=== PATIENT | male | born 1950 | race Two or more races ===

== ENCOUNTER 2019-12-23 23:04 | Inpatient (IN) | payer MEDICARE, OTHER ==
[~2019-12-23] VITALS: Ht 165.1 cm; Wt 94.8 kg
--- NOTE | 2019-12-23 23:12 | NUR ---
PT BIB RA WITH A C/O BILATERAL INGUINAL/GROIN PAIN, BLADDER PAIN, TESTICULAR PAIN, AND PAIN WITH URINATION. PT LOST HIS PLACE AT THE BOARD AND CARE AND PER THE PT, THE ENTHONE SOLDER STRIPPER WAS NOT ABLE TO GET HIM PLACED AT THE BOARD IN CARE. PT STATED THAT THE PAIN IS CHRONIC, BUT IS WORSE TODAY. PT HAS A WHEEL CHAIR AND AMBULATED TO THE GURNEY FROM THE RESCUE GURNEY WITH ASSISTANCE. PT WAS PLACED IN A GOWN AND IS ON THE MONITOR AND CONTINUOUS PULSE OX.
[2019-12-23 23:38] LABS: BASOPHILS # (AUTO) 0.1 /CMM (0.0-0.2); BASOPHILS % (AUTO) 0.9 % (0.0-2.0); EOSINOPHILS % (AUTO) 0.2 % (0.0-6.0); HEMATOCRIT 44 % (39-51); HEMOGLOBIN 14.7 g/dL (13.5-17.5); LYMPHOCYTES % (AUTO) 10.7 % (20.0-44.0); MEAN CORPUSCULAR HGB CONC 34 g/dl (31.0-36.0); MEAN CORPUSCULAR VOLUME 90 fL (80-96); MONOCYTES # (AUTO) 0.7 /CMM (0.1-1.30); MONOCYTES % (AUTO) 7.5 % (2.0-12.0); NEUTROPHILS # (AUTO) 7.1 /CMM (1.8-8.9); NEUTROPHILS % (AUTO) 80.7 % (43.0-81.0); PLATELET COUNT (AUTO) 225 /CMM (150-450); RED BLOOD CELL COUNT(AUTO) 4.81 MIL/uL (4.5-6.0); WHITE BLOOD COUNT (AUTO) 8.9 K/uL (4.3-11.0)
[2019-12-23 23:42] LABS: APPEARANCE,URINE Clear (CLEAR); BILIRUBIN,URINE MODERATE (NEGATIVE); BLOOD, URINE Moderate Ery/uL (NEGATIVE); COLOR,URINE Yellow (YELLOW); KETONES,URINE 15 (NEGATIVE); LEUKOCYTE ESTERASE ,URINE Negative (NEGATIVE); NITRITE, URINE Negative (NEGATIVE); PROTEIN,URINE 100 mg/dl (NEGATIVE); UGLUCOSE Negative (NEGATIVE)
[2019-12-23 23:52] LABS: ALBUMIN 3.7 g/dL (3.4-5.0); BILIRUBIN,DIRECT 0.2 mg/dL (0.0-0.2); BILIRUBIN,TOTAL 0.9 mg/dL (0.2-1.0); CALCIUM, SERUM 8.4 mg/dL (8.5-10.1); TOTAL PROTEIN, SERUM 7.6 g/dL (6.4-8.2)
[2019-12-23 23:53] LABS: POTASSIUM 2.7 mmol/L (3.5-5.1)
[2019-12-23 23:58] LABS: BACTERIA,URINE Few /HPF (None Seen); SQUAMOUS EPITHELIAL CELL,UR Few /HPF (None Seen)
--- NOTE | 2019-12-24 00:10 | NUR ---
US TECH AT THE BED SIDE
[2019-12-24] MEDS ORDERED: POTASSIUM CHLORIDE 20 MEQ TAB.PRT.SR PO ONE ×2 (00:28→00:30)
[2019-12-24] MEDS ORDERED: POTASSIUM CHLORIDE 20 MEQ POWDER PACKET ONE (00:35)
[2019-12-24] MEDS ORDERED: POTASSIUM CHLORIDE 20 MEQ POWDER PACKET PO ONE (01:00)
--- NOTE | 2019-12-24 02:58 | NUR ---
EMT AT BEDSIDE TO CHANGE PT.
--- NOTE | 2019-12-24 03:32 | NUR ---
Patient is resting comfortably in bed with eyes closed. Easily aroused. VSS.
--- NOTE | 2019-12-24 07:24 | NUR ---
ENDORSEMENT RECEIVED FROM AISHA HUMPHREY FOR [facility]. PATIENT IN BED ASLEEP, EASILY AROUSABLE BY VOICE. HOOKED TO MONITOR, WILL CONTINUE TO MONITOR ACCORDINGLY.
--- NOTE | 2019-12-24 08:55 | NUR ---
spoke to Mandie Dean Of Graduate Studies re: placement.
--- NOTE | 2019-12-24 09:00 | NUR ---
RECEIVED FROM THE ER VIA MACY. LARGE AMOUNT STOOL AND URINE IN HIS DIAPER, BED BATH GIVEN HE IS ALERT AND ORIENTATED. 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 he denies pain at this time.
--- NOTE | 2019-12-24 10:49 | NUR ---
PATIENT IN BED ASLEEP, EASILY AROUSABLE BY VOICE. HOOKED TO MONITOR, WILL CONTINUE TO MONITOR ACCORDINGLY.
--- NOTE | 2019-12-24 12:41 | NUR ---
OFFERED FOOD FOR LUNCH. PATIENT JUST WANTED JUICE.
--- NOTE | 2019-12-24 14:28 | NUR ---
[facility]. PER NURSING STAFF AT [facility] NEED COVID TEST BEFORE ADMISSION.
--- NOTE | 2019-12-24 14:58 | NUR ---
PAGED [facility].
[2019-12-24] MEDS ORDERED: ONDANSETRON HCL/PF 4 MG/2 ML VIAL IVP PRN (16:00)
[2019-12-24] MEDS ORDERED: HYDROCODONE/APAP 5/325MG 1 EACH TABLET PO PRN (16:00)
[2019-12-24] MEDS ORDERED: ZOLPIDEM TARTRATE 5 MG TABLET PO PRN (16:00)
[2019-12-24] MEDS ORDERED: Z GUARD REMEDY 2 OZ OINT TP PRN (16:00)
[2019-12-24] MEDS ORDERED: ACETAMINOPHEN 325 MG TABLET PO PRN (16:00)
[2019-12-24] MEDS ORDERED: MAG HYDROX/AL HYDROX/SIMETH 30 ML UDC PO PRN (16:00)
[2019-12-24] MEDS ORDERED: MAGNESIUM HYDROXIDE 30 ML UDC PO PRN (16:00)
--- NOTE | 2019-12-24 16:21 | NUR ---
PATIENT IN BED ASLEEP, EASILY AROUSABLE BY VOICE. HOOKED TO MONITOR, VSS. KEPT SAFE, WARM AND COMFORTABLE. WILL CONTINUE TO MONITOR ACCORDINGLY
--- NOTE | 2019-12-24 16:23 | NUR ---
CALL FROM JESUS,CASE MANAGEMENT, ACCEPTED A NORMA COBB 1830, REPORT TO [phone]
--- NOTE | 2019-12-24 16:33 | NUR ---
AMBULANCE ETA 183
[2019-12-24] MEDS ORDERED: METO50TA16 PO (16:40)
[2019-12-24] MEDS ORDERED: ASPI-1169 PO (16:40)
[2019-12-24] MEDS ORDERED: MULT-24 PO (16:40)
[2019-12-24] MEDS ORDERED: TAMS-12 PO (16:40)
[2019-12-24] MEDS ORDERED: HYDR-4384 PO (17:19)
--- NOTE | 2019-12-24 17:55 | NUR ---
NURSING SUP GAVE M/S BED 204-1.
--- NOTE | 2019-12-24 17:59 | NUR ---
CORONAVIRUS SWAB SENT TO LAB
--- NOTE | 2019-12-24 18:05 | NUR ---
REPORT GIVEN TO JESS HUMPHREY OF [facility]
[2019-12-24 18:35] LABS: CALCIUM, SERUM 8.3 mg/dL (8.5-10.1); CREATININE 0.9 mg/dL (0.6-1.3)
--- NOTE | 2019-12-24 19:01 | NUR ---
TRANSFERRED TO [facility] VIA RNEY BY TELECOMMUNICATOR
[2019-12-24 20:45] VITALS: BP 121/80
[2019-12-24 20:53] VITALS: BP 121/80
--- NOTE | 2019-12-25 05:43 | NUR ---
ENDING NOTES: ADMITTED FROM THE ER LAST NIGHT AT 1900. ALERT AND ORIENTATED X4 COOPERATIVE MANY LITTLE DEMANDS. COMPLETE BED BATH AND LINEN CHANGE DT HE WAS INCONTINENT LARGE AMOUNT BM AND URINE FROM THE ER. ATE A GOOD SNACK CONSUMED 100% .NO C/O PAIN THIS 12 HOURS. WHEELCHAIR HIS OWN WITH A LARGE BAG OF HIS BELONGING IN THE ROOM
[2019-12-25 06:48] LABS: BASOPHILS # (AUTO) 0.1 /CMM (0.0-0.2); BASOPHILS % (AUTO) 0.9 % (0.0-2.0); EOSINOPHILS % (AUTO) 1.2 % (0.0-6.0); HEMATOCRIT 42 % (39-51); LYMPHOCYTES # (AUTO) 1.3 /CMM (0.8-4.8); LYMPHOCYTES % (AUTO) 19.5 % (20.0-44.0); MEAN CORPUSCULAR HGB CONC 34 g/dl (31.0-36.0); MEAN CORPUSCULAR VOLUME 90 fL (80-96); MONOCYTES # (AUTO) 0.6 /CMM (0.1-1.30); MONOCYTES % (AUTO) 9.4 % (2.0-12.0); NEUTROPHILS # (AUTO) 4.5 /CMM (1.8-8.9); PLATELET COUNT (AUTO) 210 /CMM (150-450); RED BLOOD CELL COUNT(AUTO) 4.63 MIL/uL (4.5-6.0); WHITE BLOOD COUNT (AUTO) 6.5 K/uL (4.3-11.0)
[2019-12-25 07:24] LABS: ALBUMIN 3.1 g/dL (3.4-5.0); BILIRUBIN,TOTAL 0.7 mg/dL (0.2-1.0); CALCIUM, SERUM 7.9 mg/dL (8.5-10.1); MAGNESIUM 1.9 mg/dL (1.8-2.4); PHOSPHORUS 2.3 mg/dL (2.5-4.9); TOTAL PROTEIN, SERUM 6.7 g/dL (6.4-8.2)
[2019-12-25 07:28] LABS: POTASSIUM 2.8 mmol/L (3.5-5.1)
--- NOTE | 2019-12-25 07:31 | NUR ---
MS/RN OPENING NOTES RECEIVED PATIENT ON BED. PATIENT IS ALERT AND ORIENTED X 4. COMPLAINED OF ABDOMINAL PAIN NOTED. NO RESPIRATORY DISTRESS NOTED. IV ACCESS AT RIGHT HAND # 20 G PATENT AND INTACT. BED IN LOW POSITION AND LOCKED X2. CALL LIGHT WITHIN REACH. WILL CONTINUE TO MONITOR.
[2019-12-25 07:50] VITALS: BP 125/73
[2019-12-25] MEDS ORDERED: POTASSIUM CHLORIDE 20 MEQ TAB.PRT.SR PO ONE (08:30)
[2019-12-25] MEDS ORDERED: POTASSIUM CHLORIDE 20 MEQ TAB.PRT.SR PO SCH ×2 (09:30→11:00)
[2019-12-25] MEDS ORDERED: TAMSULOSIN 0.4 MG CAP.SR.24H PO SCH (10:30)
[2019-12-25] MEDS ORDERED: METOPROLOL TARTRATE 50 MG TABLET PO SCH (10:30)
[2019-12-25 11:27] VITALS: BP 125/75
[2019-12-25] MEDS ORDERED: NEUTRA PHOS 1 POWD.PACKET PO ONE (13:00)
--- NOTE | 2019-12-25 16:07 | NUR ---
MS/RN NOTES PATIENT IS ALERT AND ORIENTED X4. PATIENT DENIES PAIN AT THIS TIME. IN ROOM AIR AND SATURATION OF 99%. RESPIRATION REGULAR AND UNLABORED. PATIENT IN NO APPARENT RESPIRATORY DISTRESS NOTED. SEEN AND EXAMINED BY MD WITH ORDERS MADE AND CARRIED OUT. ALL DUE MEDICATION WAS GIVEN. PATIENT DISCHARGED AT 1520 PATIENT WAS GIVEN DISCHARGED INSTRUCTIONS AND PATIENT VERBALIZED UNDERSTANDING. GIVE REPORT TO LOREN HUMPHREY AT [facility]. THE PATIENT LEFT THE HOSPITAL IN STABLE CONDITION. 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
== END 2019-12-25 15:20 | DRG 730 ==
LOC: ER 23:05 → MEDSG2 12-24 18:07
PROVIDERS: ADMIT Internal Medicine; ATTEND Internal Medicine
DX: N50.819 Testicular pain, unspecified (principal); E87.6 Hypokalemia; I10 Essential (primary) hypertension; Z86.73 Personal history of transient ischemic attack (TIA), and cerebral infarction without residual deficits; I25.10 Atherosclerotic heart disease of native coronary artery without angina pectoris; E66.9 Obesity, unspecified; N40.0 Benign prostatic hyperplasia without lower urinary tract symptoms; Z79.899 Other long term (current) drug therapy
CPT/HCPCS: 36415; 76870-TC; 80048-TC; 80053-TC; 80061-TC; 80076-TC; 81000-TC; 83735-TC; 84100-TC; 85025-TC; 87081-TC; G0378; U0003-CS

== ENCOUNTER 2021-02-07 15:12 | Emergency (ER) | payer MEDICARE, OTHER ==
[~2021-02-07] VITALS: Ht 165.1 cm; Wt 95.3 kg
[~2021-02-07 15:12] MED LIST: HYDR-4384 PO; METO50TA16 PO; TAMS-12 PO
--- NOTE | 2021-02-07 15:12 | NUR ---
PT BIBPA FROM [facility] C/O FAILURE TO THRIVE. PT IS AAOX3, NOT IN RESPIRATROY DISTRESS, HOOKED TO PORTFOLIO STRATEGIST, KEPT RESTED AND COMFORTABLE. WILL CONTINUE TO MONITOR.
--- NOTE | 2021-02-07 15:27 | NUR ---
AT BEDSIDE FOR EVAL.
[2021-02-07] MEDS ORDERED: DICL100G34 TP (15:29)
[2021-02-07] MEDS ORDERED: BIMA2.5D5 RIGHTEYE (15:29)
[2021-02-07] MEDS ORDERED: DOCU-141 PO (15:29)
[2021-02-07] MEDS ORDERED: ACET-868 PO (15:29)
[2021-02-07] MEDS ORDERED: SENN-261 PO (15:29)
[2021-02-07] MEDS ORDERED: MAGN400O6 PO (15:29)
[2021-02-07] MEDS ORDERED: SIME80TA15 PO (15:29)
[2021-02-07] MEDS ORDERED: POLY15DR40 EACHEYE (15:29)
[2021-02-07] MEDS ORDERED: DICY20TA11 PO (15:29)
[2021-02-07] MEDS ORDERED: POLY17PO4 PO (15:29)
--- NOTE | 2021-02-07 15:40 | NUR ---
IV LINE ESTABLISHED BLOOD DRAWN AND SENT TO LAB.
[2021-02-07 15:48] LABS: BASOPHILS # (AUTO) 0.1 K/uL (0.0-0.2); BASOPHILS % (AUTO) 1.2 % (0.0-2.0); EOSINOPHILS % (AUTO) 2.1 % (0.0-6.0); HEMATOCRIT 41 % (39-51); HEMOGLOBIN 13.8 g/dL (13.5-17.5); LYMPHOCYTES # (AUTO) 1.7 K/uL (0.8-4.8); LYMPHOCYTES % (AUTO) 18.9 % (20.0-44.0); MEAN CORPUSCULAR HGB CONC 34 g/dl (31.0-36.0); MEAN CORPUSCULAR VOLUME 89 fL (80-96); MONOCYTES # (AUTO) 0.7 K/uL (0.1-1.30); MONOCYTES % (AUTO) 8.1 % (2.0-12.0); NEUTROPHILS # (AUTO) 6.3 K/uL (1.8-8.9); NEUTROPHILS % (AUTO) 69.7 % (43.0-81.0); PLATELET COUNT (AUTO) 211 K/uL (150-450); RED BLOOD CELL COUNT(AUTO) 4.63 MIL/uL (4.5-6.0)
[2021-02-07 16:01] LABS: ALANINE AMINOTRANSFERASE 15 U/L (12-78); ALBUMIN 3.2 g/dL (3.4-5.0); ALKALINE PHOSPHATASE 95 U/L (46-116); ASPARTATE AMINOTRANSFERASE 11 U/L (15-37); BILIRUBIN,DIRECT 0.1 mg/dL (0.0-0.2); BILIRUBIN,TOTAL 0.2 mg/dL (0.2-1.0); CALCIUM, SERUM 8.8 mg/dL (8.5-10.1); CARBON DIOXIDE 26 mmol/L (21-32); CHLORIDE 103 mmol/L (98-107); CREATININE 1.3 mg/dL (0.6-1.3); GLUCOSE 220 mg/dL (74-106); LIPASE 135 U/L (73-393); SODIUM SERUM 139 mmol/L (136-145); TOTAL PROTEIN, SERUM 7.5 g/dL (6.4-8.2); UREA NITROGEN, BLOOD 20 mg/dL (7-18)
[2021-02-07] MEDS ORDERED: IV NS 0.9% 500 ML BAG IV ONE (17:00)
--- NOTE | 2021-02-07 17:22 | NUR ---
PT REFUSED CEJA CATH INSERTION. PER PT HE WILL TRY TO URINATE BY HIMSELF.
--- NOTE | 2021-02-07 17:50 | NUR ---
URINE SPECIMEN COLLECTED AND SENT TO LAB.
[2021-02-07 17:55] LABS: BILIRUBIN,URINE Negative (NEGATIVE); COLOR,URINE YELLOW (YELLOW); LEUKOCYTE ESTERASE ,URINE Negative (NEGATIVE); NITRITE, URINE Negative (NEGATIVE); PROTEIN,URINE Negative (NEGATIVE); UGLUCOSE Negative (NEGATIVE); UROBILINOGEN,URINE 0.2 EU/dL (0.2)
[2021-02-07 18:05] LABS: MUCUS,URINE Many /LPF (None Seen)
[2021-02-07 18:06] LABS: BACTERIA,URINE Rare /HPF (None Seen); SQUAMOUS EPITHELIAL CELL,UR Rare /HPF (None Seen); WBC,URINE 0-2 /HPF (0-3)
--- NOTE | 2021-02-07 18:25 | NUR ---
CALLED [facility] ETA 30 MINS.
--- NOTE | 2021-02-07 18:29 | NUR ---
REPORT GIVEN TO MILAGRO TRUJILLO OF [facility].
--- NOTE | 2021-02-07 18:44 | NUR ---
REPORT GIVEN TO EMS FOR PT TRANSFER BACK TO SNF
[2021-02-07 18:45] VITALS: BP 132/73
== END 2021-02-07 18:46 | disposition home or self-care (01) ==
LOC: ER 15:20
DX: E86.0 Dehydration (principal); R31.9 Hematuria, unspecified; I10 Essential (primary) hypertension; N40.0 Benign prostatic hyperplasia without lower urinary tract symptoms; I25.10 Atherosclerotic heart disease of native coronary artery without angina pectoris; Z90.49 Acquired absence of other specified parts of digestive tract; Z86.73 Personal history of transient ischemic attack (TIA), and cerebral infarction without residual deficits; Z79.899 Other long term (current) drug therapy
CPT/HCPCS: 36415; 71045-TC; 80048-TC; 80076-TC; 81001; 83690-TC; 84484-TC; 85025-TC

== ENCOUNTER 2021-04-28 19:34 | Emergency (ER) | payer MEDICARE, OTHER ==
[~2021-04-28] VITALS: Ht 165.1 cm; Wt 91.6 kg
[~2021-04-28 19:34] MED LIST changes: +ACET-868 PO; +BIMA2.5D5 RIGHTEYE; +DICL100G34 TP; +DICY20TA11 PO; +DOCU-141 PO; +MAGN400O6 PO; +POLY15DR40 EACHEYE; +POLY17PO4 PO; +SENN-261 PO; +SIME80TA15 PO
--- NOTE | 2021-04-28 19:55 | NUR ---
PATIENT CAME TO ER BED 6 BIB EMS FROM [facility] FOR LOWER BACK PAIN. PATIENT IS ALERT AND ORIENTED x4. DENIES SHORTNESS OF BREATH. BREATHING EVENLY AND UNLABORED ON ROOM AIR. CONNECTED TO THE MONITOR.
[2021-04-28] MEDS ORDERED: KETOROLAC TROMETHAMINE 15 MG/ML VIAL ONE (19:59)
[2021-04-28] MEDS ORDERED: IV NS 0.9% 1,000 ML BAG IV ONE (20:00)
[2021-04-28] MEDS ORDERED: KETOROLAC TROMETHAMINE INJ 30 MG/ML VIAL IV ONE ×2 (20:00→22:30)
[2021-04-28] MEDS ORDERED: LIDOCAINE 2% JEL UROJET 10 ML MM ONE (21:29)
[2021-04-28 21:37] LABS: BASOPHILS # (AUTO) 0.1 K/uL (0.0-0.2); BASOPHILS % (AUTO) 0.5 % (0.0-2.0); EOSINOPHILS % (AUTO) 1.1 % (0.0-6.0); HEMATOCRIT 46 % (39-51); HEMOGLOBIN 15.3 g/dL (13.5-17.5); LYMPHOCYTES # (AUTO) 1.5 K/uL (0.8-4.8); LYMPHOCYTES % (AUTO) 13.2 % (20.0-44.0); MEAN CORPUSCULAR HGB CONC 33 g/dl (31.0-36.0); MEAN CORPUSCULAR VOLUME 90 fL (80-96); MONOCYTES # (AUTO) 1.1 K/uL (0.1-1.30); MONOCYTES % (AUTO) 9.3 % (2.0-12.0); NEUTROPHILS # (AUTO) 8.7 K/uL (1.8-8.9); NEUTROPHILS % (AUTO) 75.9 % (43.0-81.0); PLATELET COUNT (AUTO) 221 K/uL (150-450); RED BLOOD CELL COUNT(AUTO) 5.12 MIL/uL (4.5-6.0); WHITE BLOOD COUNT (AUTO) 11.5 K/uL (4.3-11.0)
[2021-04-28 21:52] LABS: CALCIUM, SERUM 9.4 mg/dL (8.5-10.1); CARBON DIOXIDE 28 mmol/L (21-32); CHLORIDE 101 mmol/L (98-107); CREATININE 1.4 mg/dL (0.6-1.3); GLUCOSE 134 mg/dL (74-106); POTASSIUM 3.6 mmol/L (3.5-5.1); SODIUM SERUM 139 mmol/L (136-145); UREA NITROGEN, BLOOD 17 mg/dL (7-18)
[2021-04-28 21:53] VITALS: BP 122/79
[2021-04-28 21:58] LABS: ALANINE AMINOTRANSFERASE 69 U/L (12-78); ALBUMIN 3.2 g/dL (3.4-5.0); ALKALINE PHOSPHATASE 125 U/L (46-116); ASPARTATE AMINOTRANSFERASE 25 U/L (15-37); BILIRUBIN,DIRECT 0.1 mg/dL (0.0-0.2); BILIRUBIN,TOTAL 0.5 mg/dL (0.2-1.0); LIPASE 99 U/L (73-393); TOTAL PROTEIN, SERUM 7.9 g/dL (6.4-8.2)
[2021-04-28 22:13] LABS: BILIRUBIN,URINE NEGATIVE (NEGATIVE); COLOR,URINE YELLOW (YELLOW); LEUKOCYTE ESTERASE ,URINE NEGATIVE (NEGATIVE); NITRITE, URINE NEGATIVE (NEGATIVE); PH,URINE 5.5 (5.0-8.0); PROTEIN,URINE NEGATIVE (NEGATIVE); UGLUCOSE NEGATIVE (NEGATIVE); UROBILINOGEN,URINE 0.2 EU/dL (0.2)
[2021-04-28] MEDS ORDERED: MORPHINE SULFATE INJ 2 MG/ML DISP.SYRIN IV ONE (22:30)
[2021-04-28] MEDS ORDERED: HYDR-4303 PO (22:45)
[2021-04-28] MEDS ORDERED: IBUP-1955 PO (22:45)
[2021-04-28] MEDS ORDERED: TAMS-12 PO (22:45)
[2021-04-28] MEDS ORDERED: ONDA4TAB5 PO (22:45)
[2021-04-28 22:50] LABS: BACTERIA,URINE Few /HPF (None Seen); RBC,URINE 21-50 /HPF (0-2); SQUAMOUS EPITHELIAL CELL,UR Few /HPF (None Seen); URIC ACID CRYSTALS,URINE Many /HPF (None Seen); WBC,URINE 0-2 /HPF (0-3)
--- NOTE | 2021-04-28 23:01 | NUR ---
[facility] CALLED FOR TRANSPORT. ETA 1 HR.
--- NOTE | 2021-04-28 23:43 | NUR ---
SUDHA, CHARGE NURSE, FROM [facility] STATES, "I DON'T KNOW WHAT THE PROTOCOL IS, BUT MY ELECTRIC STOVE MECHANIC WHO IS COMING IN 20 MINUTES SHOULD TAKE REPORT. PLEASE CALL BACK IN 20 MINUTES."
--- NOTE | 2021-04-29 00:01 | NUR ---
REPORT GIVEN TO SUDHA AT [facility].
--- NOTE | 2021-04-29 00:14 | NUR ---
REPORT GIVEN TO TRANSPORT TEAM FOR ANDREW. AND TRANSFERRING RESPONSIBILITIES.
== END 2021-04-29 00:18 ==
LOC: ER 19:40
DX: N13.2 Hydronephrosis with renal and ureteral calculous obstruction (principal); N28.9 Disorder of kidney and ureter, unspecified; G89.29 Other chronic pain; M54.9 Dorsalgia, unspecified; Z86.73 Personal history of transient ischemic attack (TIA), and cerebral infarction without residual deficits; Z90.49 Acquired absence of other specified parts of digestive tract; R00.0 Tachycardia, unspecified; I11.9 Hypertensive heart disease without heart failure; Z20.822 Contact with and (suspected) exposure to COVID-19
CPT/HCPCS: 36415; 71045; 74176; 80048; 80076; 81001; 83690; 84484; 85025; 87426; 93005; 96361; 96374; 99285; J1885; J3490; J7030; C9803

== ENCOUNTER 2022-04-13 14:45 | Inpatient (IN) | payer MEDICARE, OTHER ==
[~2022-04-13] VITALS: Ht 165.1 cm; Wt 93.9 kg
[~2022-04-13 14:45] MED LIST changes: +HYDR-4303 PO; +IBUP-1955 PO; +ONDA4TAB5 PO
--- NOTE | 2022-04-13 15:35 | NUR ---
DIVYA FROM SNF FOR 1 EPISODE OF CONFUSION AND SLURRING AT 9AM. SENT FOR FURTHER EVAL. TO ER BED 1.
--- NOTE | 2022-04-13 16:24 | NUR ---
COVID SWAB COLLECTED AND SENT TO LAB
--- NOTE | 2022-04-13 16:34 | NUR ---
PT TAKEN TO RADIOLOGY FOR CT
[2022-04-13 16:40] LABS: BASOPHILS # (AUTO) 0.1 K/uL (0.0-0.2); BASOPHILS % (AUTO) 0.6 % (0.0-2.0); EOSINOPHILS % (AUTO) 2.1 % (0.0-6.0); HEMATOCRIT 41 % (39-51); HEMOGLOBIN 13.4 g/dL (13.5-17.5); LYMPHOCYTES # (AUTO) 1.9 K/uL (0.8-4.8); LYMPHOCYTES % (AUTO) 20.5 % (20.0-44.0); MEAN CORPUSCULAR HGB CONC 33 g/dl (31.0-36.0); MEAN CORPUSCULAR VOLUME 85 fL (80-96); MONOCYTES # (AUTO) 0.7 K/uL (0.1-1.30); MONOCYTES % (AUTO) 8.1 % (2.0-12.0); NEUTROPHILS # (AUTO) 6.3 K/uL (1.8-8.9); NEUTROPHILS % (AUTO) 68.7 % (43.0-81.0); PLATELET COUNT (AUTO) 226 K/uL (150-450); RED BLOOD CELL COUNT(AUTO) 4.78 MIL/uL (4.5-6.0); WHITE BLOOD COUNT (AUTO) 9.2 K/uL (4.3-11.0)
--- NOTE | 2022-04-13 16:41 | NUR ---
PT BACK FROM RADIOLOGY
[2022-04-13 16:45] LABS: CARBON DIOXIDE 28 mmol/L (21-32); CHLORIDE 103 mmol/L (98-107); GLUCOSE 164 mg/dL (74-106); POTASSIUM 4.2 mmol/L (3.5-5.1); SODIUM SERUM 137 mmol/L (136-145); UREA NITROGEN, BLOOD 17 mg/dL (7-18)
--- NOTE | 2022-04-13 17:04 | NUR ---
URINE SAMPLE COLLECTED AND SENT TO LAB
[2022-04-13] MEDS ORDERED: LATA2.5D15 RIGHTEYE (17:17)
[2022-04-13 17:36] LABS: BILIRUBIN,URINE NEGATIVE (NEGATIVE); COLOR,URINE YELLOW (YELLOW); LEUKOCYTE ESTERASE ,URINE TRACE (NEGATIVE); NITRITE, URINE NEGATIVE (NEGATIVE); PROTEIN,URINE NEGATIVE (NEGATIVE); UGLUCOSE NEGATIVE (NEGATIVE); UROBILINOGEN,URINE 0.2 EU/dL (0.2)
[2022-04-13 17:45] LABS: BACTERIA,URINE 1+ /HPF (None Seen); RBC,URINE 0-2 /HPF (0-2); SQUAMOUS EPITHELIAL CELL,UR 0-2 /HPF (None Seen)
--- NOTE | 2022-04-13 18:26 | NUR ---
[facility] CALLED SHOT PACKER PAGED.
--- NOTE | 2022-04-13 19:20 | NUR ---
RECEIVED PATIENT IN BED. AAOX3. WITH SLURRING OF SPEECH. PER PATIENT, THE SLURRING HAPPENED MORE THAN A MONTH AGO. ABLE TO MAKE NEEDS KNOWN. ATTACHED TO MONITOR. VITALS CHECKED.
[2022-04-13] MEDS ORDERED: IOHEXOL-350 100 ML VIAL IV ONE (20:23)
[2022-04-13] MEDS ORDERED: CT SWABBABLE VALVE TRANS SET 1 EA INFUS.SET MC ONE (20:23)
[2022-04-13] MEDS ORDERED: IV NS 0.9% 250 ML IV ONE (20:23)
[2022-04-13] MEDS ORDERED: HYDROCODONE/APAP 5/325MG TABLET PO PRN (20:30)
[2022-04-13] MEDS ORDERED: Z GUARD REMEDY 4 OZ OINT TP PRN (20:30)
[2022-04-13] MEDS ORDERED: DICLOFENAC TOPICAL 100 GM GEL..GM. TP PRN (20:30)
[2022-04-13] MEDS ORDERED: ACETAMINOPHEN 325 MG TABLET PO PRN (20:30)
[2022-04-13] MEDS ORDERED: hydrALAZINE HCL IV 20 MG VIAL IV PRN (20:30)
[2022-04-13] MEDS ORDERED: ONDANSETRON HCL/PF 4 MG/2 ML VIAL IVP PRN (20:30)
[2022-04-13] MEDS ORDERED: CEFTRIAXONE 1 G in IV D5W 50 ML IV SCH (20:30)
--- NOTE | 2022-04-13 21:01 | NUR ---
IV CANNULA G20 INSERTED ON RIGHT. RADIOLOGY TO BRING PT FOR CT
--- NOTE | 2022-04-13 21:18 | NUR ---
PATIENT BROUGHT TO CT DEPT
[2022-04-13] MEDS ORDERED: POLYVINYL ALCOHOL 15 ML BOTTLE EACHEYE PRN (22:30)
--- NOTE | 2022-04-13 22:35 | NUR ---
REPORT GIVEN TO MILAGRO BUENROSTRO
[2022-04-13 23:00] VITALS: BP 144/85
--- NOTE | 2022-04-13 23:04 | NUR ---
TRANSFERRED PATIENT TO ROOM
[2022-04-13] MEDS ORDERED: CEFTRIAXONE 1 G VIAL ONE (23:34)
[2022-04-13] MEDS: TAMSULOSIN 0.4 MG CAP.SR.24H PO SCH (23:53)
[2022-04-13] MEDS: IV NS 0.9% 1,000 ML IV SCH (23:53)
[2022-04-13] MEDS: ENOXAPARIN SODIUM 40 MG/0.4 ML DISP.SYRIN SQ SCH (23:55)
[2022-04-14] MEDS ORDERED: LATANOPROST EYE DROP 0.005% 2.5 ML BOTTLE ONE (00:22)
[2022-04-14] MEDS: LATANOPROST EYE DROP 0.005% 2.5 ML BOTTLE RIGHTEYE SCH ×2 (00:40→21:08)
--- NOTE | 2022-04-14 01:15 | NUR ---
LOSS PREVENTION LEADER NOTES PATIENT BROUGHT UP IN UNIT AT 2258, VIA STRETCHER. ACCOMPANIED BY 2 ER PERSONNELS. PATIENT IS A/OX3-4. NO S/S OF APPARENT DISTRESS ON ROOM AIR. DENIES PAIN. PER PATIENT HE IS BASELINE WHEELCHAIR BOUND AT [facility]. PATIENT Laura FINNEY #20G STARTED ON NS @75MLS/HR ORDERED. TELE MONITOR READING SR WITH 83 BPM. PATIENT WISHES TO BE FULL CODE AT THIS TIME AND INQUIRED ABOUT ADVANCED DIRECTIVES, SW ORDERED. PATIENT NIHSS SCORE = 7 WITH HIS L. LEG BEING VERY WEAK. MARTHA NOTED. PATIENT PASSED NURSING SWALLOW EVAL. NEW ID BAND ON PATIENT. BELONGINGS CHECKED AND SIGNED. ALL NEEDS ATTENDED AT THE TIME. PATIENT ORIENTED IN THE UNIT AND THE USE OF CALL LIGHT. SAFETY IN PLACE. WILL CONTINUE WITH PATIENT'S PLAN OF CARE.
--- NOTE | 2022-04-14 01:26 | NUR ---
noc rn note no diet ordered yet, did passed nursing swallow eval. made charge nurse dnea aware. patient is for neuro consult in the am.
[2022-04-14 04:08] VITALS: BP 122/68
[2022-04-14] MEDS: MORPHINE SULFATE INJ 2 MG/ML DISP.SYRIN IV PRN (05:30)
[2022-04-14 06:48] LABS: BASOPHILS % (AUTO) 0.4 % (0.0-2.0); EOSINOPHILS % (AUTO) 1.8 % (0.0-6.0); HEMATOCRIT 41 % (39-51); HEMOGLOBIN 13.6 g/dL (13.5-17.5); LYMPHOCYTES # (AUTO) 1.9 K/uL (0.8-4.8); LYMPHOCYTES % (AUTO) 19.2 % (20.0-44.0); MEAN CORPUSCULAR HGB CONC 33 g/dl (31.0-36.0); MEAN CORPUSCULAR VOLUME 84 fL (80-96); MONOCYTES # (AUTO) 0.7 K/uL (0.1-1.30); MONOCYTES % (AUTO) 7.3 % (2.0-12.0); NEUTROPHILS # (AUTO) 7.2 K/uL (1.8-8.9); NEUTROPHILS % (AUTO) 71.3 % (43.0-81.0); PLATELET COUNT (AUTO) 210 K/uL (150-450); RED BLOOD CELL COUNT(AUTO) 4.81 MIL/uL (4.5-6.0); WHITE BLOOD COUNT (AUTO) 10.1 K/uL (4.3-11.0)
[2022-04-14 07:14] LABS: POTASSIUM 3.8 mmol/L (3.5-5.1)
[2022-04-14 07:15] LABS: BILIRUBIN,TOTAL 0.4 mg/dL (0.2-1.0); CALCIUM, SERUM 9.2 mg/dL (8.5-10.1); CREATININE 0.9 mg/dL (0.6-1.3); MAGNESIUM 1.8 mg/dL (1.8-2.4); PHOSPHORUS 4.3 mg/dL (2.5-4.9); TOTAL PROTEIN, SERUM 7.2 g/dL (6.4-8.2)
--- NOTE | 2022-04-14 07:20 | NUR ---
ms rn received on bed, awake,alert,oriented x4,not in any form of distress, respirations even and unlabored,no sob noted, lungs are diminish, abdomen soft, denies pain at this time,all needs attended.
[2022-04-14 08:35] VITALS: BP 103/76
[2022-04-14] MEDS: DOCUSATE SODIUM 100 MG CAPSULE PO SCH ×4 (09:00→17:58)
[2022-04-14] MEDS: METOPROLOL TARTRATE 50 MG TABLET PO SCH ×2 (09:00→17:59)
--- NOTE | 2022-04-14 09:30 | NUR ---
MS RN PATIENT HAS SLURRED SPEECH AND SLEEPING AT THIS TIME,WILL DO INITIAL NURSING SWALLOW EVAL.
[2022-04-14] MEDS: IV NS 0.9% 1,000 ML IV SCH (09:50)
--- NOTE | 2022-04-14 16:00 | NUR ---
ms rn on bed, no distress noted, patient is more awake now.
[2022-04-14 16:16] VITALS: BP 110/70
--- NOTE | 2022-04-14 19:25 | NUR ---
EKG/ECG TECHNICIAN OPENING NOTE RECEIVED PT COMFORTABLY RESTING IN BED. PT A/O x3-4, ABLE TO MAKE NEEDS KNOWN. ON RA AND TOLERATING WELL. NO SOB NOTED. NO S/SX OF RESPIRATORY DISTRESS NOTED. IV ACCESS TO RIGHT HAND #20 G. IV IS INTACT, PATENT, AND FLUSHING WELL. PATIENT ON TELE MONITOR READING SINUS RHYTHM WITH HR: 89. SAFETY PRECAUTIONS IN PLACE: BED LOCKED IN LOWEST POSITION, SIDE RAILS UP x2. BED SIDE TABLE AND CALL LIGHT WITHIN REACH. WILL CONTINUE TO MONITOR PT.
[2022-04-14 20:00] VITALS: BP 114/75
[2022-04-14] MEDS: ENOXAPARIN SODIUM 40 MG/0.4 ML DISP.SYRIN SQ SCH (21:08)
[2022-04-14] MEDS: TAMSULOSIN 0.4 MG CAP.SR.24H PO SCH ×2 (21:08→21:56)
--- NOTE | 2022-04-14 21:57 | NUR ---
DIFFERENTIAL REPAIRER NOTE FLOMAX NOT ADMINISTERED. PT DECLINED MED. EDUCATED PT ON USE OF THIS MED, AND ON IMPORTANCE OF TAKING MED. PT UNDERSTOOD, AND STILL DECLINED MED.
[2022-04-14] MEDS: CEFTRIAXONE 1 G in IV D5W 50 ML IV SCH (22:15)
[2022-04-15] VITALS: BP 120/77
[2022-04-15] MEDS: MORPHINE SULFATE INJ 2 MG/ML DISP.SYRIN IV PRN (03:19)
[2022-04-15 04:00] VITALS: BP 133/70
--- NOTE | 2022-04-15 06:59 | NUR ---
EXPRESSIVE THERAPIST CLOSING NOTE LEFT PT IN BED, ASLEEP. A/O x4, ABLE TO MAKE NEEDS KNOWN. ON RA AND TOLERATING WELL. NO SOB NOTED. NO S/SX OF RESPIRATORY DISTRESS NOTED. IV ACCESS TO RIGHT HAND 20 G. IV IS INTACT, PATENT, AND FLUSHING WELL. ALL ORDERS CARRIED OUT. ALL MEDS ADMINISTERED IN TIMELY MANNER. PT KEPT CLEAN AND DRY. SAFETY PRECAUTIONS IN PLACE: BED IN LOWEST, LOCKED POSITION, SIDE RAILS UP x2. CALL LIGHT WITHIN REACH. WILL ENDORSE TO ONCOMING NURSE SHIFT FOR ANDREW.
--- NOTE | 2022-04-15 07:31 | NUR ---
ms rn received on bed, awake,alert,oriented x4,not in any form of distress, respirations even and unlabored,no sob noted, lungs are diminish, abdomen soft,positive bowel sounds,denies pain at this time, will monitor patient.
[2022-04-15 08:00] VITALS: BP 117/81
[2022-04-15] MEDS: METOPROLOL TARTRATE 50 MG TABLET PO SCH ×2 (09:33→17:20)
[2022-04-15] MEDS: DOCUSATE SODIUM 100 MG CAPSULE PO SCH ×3 (09:33→17:18)
[2022-04-15 12:00] VITALS: BP 120/78
[2022-04-15 16:00] VITALS: BP 103/64
--- NOTE | 2022-04-15 19:05 | NUR ---
REINSTATEMENT CLERK OPENING NOTES RECEIVED PATIENT AWAKE IN BED, A/Ox3-4 ABLE TO MAKE NEEDS KNOWN. ON ROOM AIR, NO S/S OF RESPIRATORY DISTRESS. IV ACCESS R HAND #20G. INTACT AND PATENT. PATIENT IS ON TELE MONITORING SHOWING SINUS RHYTHM HR 77, NO COMPLAINT OF CARDIAC DISTRESS OR CHEST PAIN. PATIENT ON BEDREST. SKIN INTACT. SAFETY MEASURES IN PLACE: BED LOCKED AND IN LOWEST POSITION, SIDE RAILS UP x2, HOB ELEVATED, CALL LIGHT WITHIN REACH. WILL CONTINUE TO MONITOR.
[2022-04-15 20:00] VITALS: BP 125/75
[2022-04-15] MEDS: LATANOPROST EYE DROP 0.005% 2.5 ML BOTTLE RIGHTEYE SCH (21:08)
[2022-04-15] MEDS: TAMSULOSIN 0.4 MG CAP.SR.24H PO SCH (21:08)
[2022-04-15] MEDS: ENOXAPARIN SODIUM 40 MG/0.4 ML DISP.SYRIN SQ SCH (21:08)
[2022-04-15] MEDS: CEFTRIAXONE 1 G in IV D5W 50 ML IV SCH (22:14)
[2022-04-16] VITALS: BP 107/65
[2022-04-16 04:00] VITALS: BP 115/60
--- NOTE | 2022-04-16 06:30 | NUR ---
RISK MANAGEMENT DIRECTOR CLOSING NOTES PATIENT SLEEPING IN BED, A/Ox3-4 ABLE TO MAKE NEEDS KNOWN. STABLE ON ROOM AIR, NO S/S OF RESPIRATORY DISTRESS. IV ACCESS R HAND #20G. INTACT AND PATENT. PATIENT IS ON TELE MONITORING SHOWING SINUS RHYTHM HR 74, NO COMPLAINT OF CARDIAC DISTRESS OR CHEST PAIN. PATIENT ON BEDREST. SKIN INTACT. ALL PRESCRIBED MEDICATION ADMINISTERED. SAFETY MEASURES MAINTAINED: BED LOCKED AND IN LOWEST POSITION, SIDE RAILS UP x2, HOB ELEVATED, CALL LIGHT WITHIN REACH. WILL ENDORSE TO NEXT SHIFT ANY ANDREW.
[2022-04-16 08:00] VITALS: BP 110/69
[2022-04-16] MEDS: METOPROLOL TARTRATE 50 MG TABLET PO SCH ×2 (11:02→17:42)
[2022-04-16] MEDS: DOCUSATE SODIUM 100 MG CAPSULE PO SCH ×3 (11:03→17:41)
[2022-04-16 12:00] VITALS: BP 126/79
[2022-04-16 16:00] VITALS: BP 135/69
--- NOTE | 2022-04-16 19:08 | NUR ---
RN CLOSING NOTE PATIENT RECEIVED IN BED AND SLEEPING. A/O X3-4 AND ABLE TO VERBALIZE NEEDS HOWEVER SPEECH IS SLURRED. PATIENT INCONTINENT. IV ACCESS TO R HAND INTACT AND PATENT. REMAINS ON MECHANICAL SOFT DIET AT THIS TIME. TOLERATING WELL. CT OF ABDOMEN W/O CONTRAST COMPLETED ON SHIFT. NO NEW LABS ORDERED AT THIS TIME. SAFETY MEASURES IN PLACE WITH BED IN LOWEST POSITION AND LOCKED. SIDERAIL UP AND CALL LIGHT WITHIN REACH. WILL CONTINUE TO MONITOR THROUGHOUT SHIFT.
--- NOTE | 2022-04-16 19:30 | NUR ---
RN OPENING NOTE RECEIVED REPORT FROM MILAGRO DANIELS FOR [facility]. PT IN BED, A/O x 3-4, ABLE TO MAKE NEEDS KNOWN VIA VERBAL COMMUNICATION BUT WITH SLURRED SPEECH. CURRENTLY ON ROOM AIR, TOLERATING WELL. NO S/SX OF ACUTE RESPIRATORY DISTRESS NOTED AT THIS TIME. IV ACCESS IN R HAND #20G, INTACT AND PATENT. ALL SAFETY MEASURES IN PLACE: BED LOCKED AND IN LOWEST POSITION, SIDE RAILS UP x2, HOB ELEVATED, CALL LIGHT WITHIN REACH. WILL CONTINUE TO MONITOR.
[2022-04-16 20:56] VITALS: BP 127/81
[2022-04-16] MEDS: LATANOPROST EYE DROP 0.005% 2.5 ML BOTTLE RIGHTEYE SCH (21:11)
[2022-04-16] MEDS: TAMSULOSIN 0.4 MG CAP.SR.24H PO SCH ×2 (21:11→21:25)
[2022-04-16] MEDS: ENOXAPARIN SODIUM 40 MG/0.4 ML DISP.SYRIN SQ SCH (21:12)
--- NOTE | 2022-04-16 21:25 | NUR ---
RN NOTE PT REFUSED FLOMAX MEDICATION. TRIED TO EXPLAIN TO PT THE IMPORTANCE OF MEDICAL COMPLIANCE, STILL REFUSED.
[2022-04-16] MEDS: CEFTRIAXONE 1 G in IV D5W 50 ML IV SCH (22:22)
--- NOTE | 2022-04-17 05:34 | NUR ---
RN CLOSING NOTE PT REMAINED STABLE T/O THE NIGHT. PT ABLE TO VERBALIZE HIS NEEDS ALTHOUGH WITH A SLURRED SPEECH. ALL DUE MEDS GIVEN. NEEDS ATTENDED TO. VSS. WILL ENDORSE TO AM SHIFT NURSE FOR ANDREW.
[2022-04-17] MEDS: MORPHINE SULFATE INJ 2 MG/ML DISP.SYRIN IV PRN (06:08)
--- NOTE | 2022-04-17 07:30 | NUR ---
RN MS NOTES PT IN BED, AWAKE, ALERT AND ORIENTED, EATING BREAKFAST AND WATCHING TV, NO COMPLAINT OF PAIN OF ANY DISCOMFORT, CALL LIGHT WITHIN REACH.
[2022-04-17 08:04] VITALS: BP 123/74
[2022-04-17] MEDS: METOPROLOL TARTRATE 50 MG TABLET PO SCH ×2 (09:00→09:38)
[2022-04-17] MEDS: DOCUSATE SODIUM 100 MG CAPSULE PO SCH ×3 (09:38→13:00)
[2022-04-17 15:50] VITALS: BP 112/70
--- NOTE | 2022-04-17 15:50 | NUR ---
RN MS NOTES PT IN BED, RESTING, NO COMPLAINT OF PAIN OR ANY DISCOMFORT, RESPIRATIONS NORMAL, CALL LIGHT WITHIN REACH, SEEN BY DR. PEREZ TODAY, DISCHARGE ORDER GIVEN, DISCHARGE AND MEDICATION INSTRUCTIONS GIVEN TO PT, VERBALIZED UNDERSTANDING, REPORT GIVEN TO ALICIA HUMPHREY OR [facility], BELONGINGS ACCOUNTED FOR, PT LEFT WITH HIS CELLPHONE, PICKED UP BY 2 AMBULANCE PERSONNEL, LEFT VIA GUERNEY IN STABLE CONDITION.
== END 2022-04-17 15:50 | DRG 689 ==
LOC: ER 14:50 → TELE 22:18 → MED 04-16 21:53
PROVIDERS: ADMIT Internal Medicine; ATTEND Internal Medicine
DX: N39.0 Urinary tract infection, site not specified (principal); G93.41 Metabolic encephalopathy; I69.351 Hemiplegia and hemiparesis following cerebral infarction affecting right dominant side; Z20.822 Contact with and (suspected) exposure to COVID-19; G89.29 Other chronic pain; I10 Essential (primary) hypertension; N40.0 Benign prostatic hyperplasia without lower urinary tract symptoms; Z79.899 Other long term (current) drug therapy; I69.322 Dysarthria following cerebral infarction; I66.01 Occlusion and stenosis of right middle cerebral artery; I88.0 Nonspecific mesenteric lymphadenitis; N20.0 Calculus of kidney
CPT/HCPCS: 36415; 70450-TC; 70496-TC; 70498-TC; 71045-TC; 80048-TC; 80053-TC; 81001; 83605-TC; 83735-TC; 84100-TC; 84484-TC; 85025-TC; 85730-TC; 87081-TC; 87086-TC; 87186-TC; C9803; G0378; J0696; J1650; J2270; J7030; J7050; J7060; Q9967

== ENCOUNTER 2023-08-14 15:57 | Emergency (ER) | payer MEDICARE, OTHER ==
[~2023-08-14] VITALS: Ht 165.1 cm; Wt 82.1 kg
[~2023-08-14 15:57] MED LIST changes: -BIMA2.5D5 RIGHTEYE; -HYDR-4303 PO; +LATA2.5D15 EACHEYE; -ONDA4TAB5 PO
[2023-08-14 17:49] LABS: BASOPHILS # (AUTO) 0.1 K/uL (0.0-0.2); EOSINOPHILS # (AUTO) 0.2 K/uL (0.0-0.7); EOSINOPHILS % (AUTO) 1.8 % (0.0-6.0); HEMATOCRIT 41 % (39-51); HEMOGLOBIN 13.5 g/dL (13.5-17.5); LYMPHOCYTES # (AUTO) 2.1 K/uL (0.8-4.8); LYMPHOCYTES % (AUTO) 15.7 % (20.0-44.0); MEAN CORPUSCULAR HEMOGLOBIN 28 PG (26.0-33.0); MEAN CORPUSCULAR HGB CONC 33 g/dl (31.0-36.0); MEAN CORPUSCULAR VOLUME 83 fL (80-96); MONOCYTES # (AUTO) 0.8 K/uL (0.1-1.30); MONOCYTES % (AUTO) 6.3 % (2.0-12.0); NEUTROPHILS # (AUTO) 10.1 K/uL (1.8-8.9); NEUTROPHILS % (AUTO) 75.2 % (43.0-81.0); PLATELET COUNT (AUTO) 258 K/uL (150-450); RED BLOOD CELL COUNT(AUTO) 4.93 MIL/uL (4.5-6.0); RED CELL DISTRIBUTION WIDTH 15.1 % (11.5-15.0); WHITE BLOOD COUNT (AUTO) 13.4 K/uL (4.3-11.0)
[2023-08-14 18:00] LABS: CARBON DIOXIDE 24 mmol/L (21-32); CHLORIDE 100 mmol/L (98-107); CREATININE 0.8 mg/dL (0.6-1.3); GLUCOSE 221 mg/dL (74-106); POTASSIUM 3.9 mmol/L (3.5-5.1); SODIUM SERUM 133 mmol/L (136-145); UREA NITROGEN, BLOOD 12 mg/dL (7-18)
[2023-08-14 18:07] LABS: ALANINE AMINOTRANSFERASE 10 U/L (12-78); ALBUMIN 2.9 g/dL (3.4-5.0); ALKALINE PHOSPHATASE 97 U/L (46-116); ASPARTATE AMINOTRANSFERASE 7 U/L (15-37); BILIRUBIN,DIRECT 0.1 mg/dL (0.0-0.2); BILIRUBIN,TOTAL 0.2 mg/dL (0.2-1.0); LIPASE 40 U/L (16-77); TOTAL PROTEIN, SERUM 7.8 g/dL (6.4-8.2)
[2023-08-14] MEDS ORDERED: METO-295 PO (18:07)
[2023-08-14] MEDS ORDERED: GLIP5TAB13 PO (18:07)
[2023-08-14] MEDS ORDERED: IBUP-1955 PO (18:07)
[2023-08-14] MEDS ORDERED: TAMS-12 PO (18:07)
[2023-08-14] MEDS ORDERED: METF-442 PO (18:07)
[2023-08-14 20:40] LABS: APPEARANCE,URINE CLEAR (CLEAR); BILIRUBIN,URINE NEGATIVE (NEGATIVE); BLOOD, URINE 1+ Ery/uL (NEGATIVE); COLOR,URINE YELLOW (YELLOW); KETONES,URINE NEGATIVE (NEGATIVE); LEUKOCYTE ESTERASE ,URINE TRACE (NEGATIVE); NITRITE, URINE NEGATIVE (NEGATIVE); PH,URINE 5.5 (5.0-8.0); PROTEIN,URINE NEGATIVE (NEGATIVE); UGLUCOSE 1+ mg/dL (NEGATIVE); UROBILINOGEN,URINE 0.2 EU/dL (0.2)
[2023-08-14] MEDS ORDERED: CIPR500T5 PO (21:28)
[2023-08-14 21:46] LABS: ADD URINE CULTURE NO; BACTERIA,URINE Few /HPF (None Seen); SQUAMOUS EPITHELIAL CELL,UR None Seen /HPF (None Seen)
[2023-08-14 22:17] VITALS: BP 121/78; TEMP 98; O2SAT 97
== END 2023-08-14 22:17 ==
LOC: ER 16:05
DX: N39.0 Urinary tract infection, site not specified (principal); N50.812 Left testicular pain; I10 Essential (primary) hypertension; G89.29 Other chronic pain; Z79.899 Other long term (current) drug therapy; N50.811 Right testicular pain
CPT/HCPCS: 36415; 76870-TC; 80048-TC; 80076-TC; 81001; 83690-TC; 85025-TC; 87086-TC